=== PATIENT | male | born 1965 | race Caucasian/White ===

== ENCOUNTER 2018-08-20 08:08 | Emergency (ER) | payer OTHER ==
[~2018-08-20] VITALS: Ht 172.7 cm; Wt 80.0 kg
[2018-08-20] MEDS ORDERED: AMOXICILLIN875 MG PO (08:23)
[2018-08-20 09:32] VITALS: BP 151/75
== END 2018-08-20 09:48 | disposition home or self-care (01) | DRG 605 ==
LOC: ED 08:08
PROC: 0HQEXZZ Repair Left Lower Arm Skin, External Approach (ICD-10-PCS; principal; 2018-08-20)
DX: S51.852A Open bite of left forearm, initial encounter (principal); W54.0XXA Bitten by dog, initial encounter; Y93.89 Activity, other specified; Y92.009 Unspecified place in unspecified non-institutional (private) residence as the place of occurrence of the external cause

== ENCOUNTER 2018-08-21 08:08 | Emergency (ER) | payer OTHER ==
[~2018-08-21] VITALS: Ht 172.7 cm; Wt 90.0 kg
[~2018-08-21 08:08] MED LIST: AMOXICILLIN875 MG PO
[2018-08-21 08:30] VITALS: BP 121/78
== END 2018-08-21 08:29 | disposition home or self-care (01) | DRG 950 ==
LOC: ED 08:08
DX: S51.852D Open bite of left forearm, subsequent encounter (principal); W54.0XXD Bitten by dog, subsequent encounter

== ENCOUNTER 2018-09-04 08:07 | Emergency (ER) | payer OTHER ==
[~2018-09-04] VITALS: Ht 172.7 cm; Wt 75.0 kg
[2018-09-04 08:27] VITALS: BP 118/66
== END 2018-09-04 08:31 | disposition home or self-care (01) | DRG 950 ==
LOC: ED 08:07
DX: S51.852D Open bite of left forearm, subsequent encounter (principal); W54.0XXD Bitten by dog, subsequent encounter